=== PATIENT | female | born 1950 | race Caucasian/White ===

== ENCOUNTER → 2016-10-13 | Outpatient (CLI) | payer BC ==
[2016-10-13 13:38] VITALS: BP 129/57; PULSE 68; TEMP 98.5; BMI 35.8
--- NOTE | 2016-10-13 15:22 | P.HPBAR ---
Bariatric H&P - History & Physicial H&P Date: 10/13/16 History & Physicial: Visit/CC: Patient initial contact: Initial weight: 127.913 kg Initial weight in pounds: 282.00 Height: 5 ft 5 in Initial BMI: 46.9 Last weight: Current weight: 97.704 kg Current weight in pounds: 215.40 Current BMI: 35.8 [place] body weight (based on NIH guidelines): 56.699 kg Excess body weight loss: 42.4% The patient is a 66 year-old F who presents for Bariatric Assessment. Patient presents today for sleeve gastrectomy follow-up. She is doing quite well from her weight loss. She has some mild GERD and arthritis. Approximate 80 pounds.. She Review of Systems Constitutional: Reports as per HPI Past Medical History Past Medical History: Asthma, Hypertension, Osteoarthritis (OA) Additional Past Medical History / Comment(s): URINARY INCONTINENCE, CHRONIC BACK PAIN,"OUT GREW MY ASTHMA",HEMORRHOIDS, PAST NUCLEAR STRESS TEST,"WNL". History of Any Multi-Drug Resistant Organisms: None Reported Past Surgical History: Appendectomy, Tonsillectomy Additional Past Surgical History / Comment(s): COLONOSCOPY/POLYPECTOMT(BENIGN) 12-27-15 LAP SLEEVE GASTRECTOMY Past Anesthesia/Blood Transfusion Reactions: Motion Sickness Past Psychological History: No Psychological Hx Reported Smoking Status: Former smoker Past Alcohol Use History: Rare Additional Past Alcohol Use History / Comment(s): started smoking age 24, smokes < 1PPD Past Drug Use History: None Reported - Past Family History Sister(s) Family Medical History: Cancer Mother Family Medical History: Cancer Surgical - Exam Vital Signs Temp Pulse BP 98.5 F 68 129/57 10/13/16 13:33 10/13/16 13:33 10/13/16 13:33 - General well developed, no distress - Eyes PERRL - ENT normal pinna - Neck no masses - Respiratory normal expansion - Cardiovascular Rhythm: regular - Abdomen Abdomen: soft, non tender Bariatric Assessment & Plan Plan: That is post sleeve yesterday. Patient is doing well for weight loss standpoint. Her GERD symptoms and arthritis symptoms are minimal and will be observed observed. She'll follow-up in 2 months. Bariatric Checklist Checklist: Plan: Checklist: EGD: 1. Hiatal hernia: 2. H. Pylori: HgbA1c: Vitamin D: Smoking: Former smoker Primary care physician referral: yousuf Nicholas ([facility]) Psychiatry clearance: Cardiology clearance: Sleep study: Diet journal: VTE risk score: VTE risk level: Rehab needs at discharge:
== END | disposition home or self-care (01) ==
LOC: BARWHC3 13:01
PROVIDERS: ATTEND Surgery
DX: Z48.815 Encounter for surgical aftercare following surgery on the digestive system (principal); K21.9 Gastro-esophageal reflux disease without esophagitis; M19.90 Unspecified osteoarthritis, unspecified site; Z98.84 Bariatric surgery status; Z68.35 Body mass index [BMI] 35.0-35.9, adult; Z87.891 Personal history of nicotine dependence
CPT/HCPCS: 99211

== ENCOUNTER → 2016-11-10 | Outpatient (CLI) | payer BC ==
[2016-11-10 14:03] VITALS: BP 108/55; PULSE 71; RESP 16; TEMP 97.7; BMI 35.7
--- NOTE | 2016-11-10 16:03 | P.HPBAR ---
Bariatric H&P - History & Physicial H&P Date: 11/10/16 History & Physicial: Visit/CC: Sleeve follow-up Patient initial contact: Initial weight: 127.913 kg Initial weight in pounds: 282.00 Height: 5 ft 5 in Initial BMI: 46.9 Last weight: Current weight: 97.522 kg Current weight in pounds: 215.00 Current BMI: 35.7 [place] body weight (based on NIH guidelines): 56.699 kg Excess body weight loss: 42.6% The patient is a 66 year-old F who presents for Bariatric Assessment. Patient will stay for sleeve gastrectomy follow-up. She states that she's been cheating on her meals. She's had some mild GERD. Past Medical History Past Medical History: Asthma, Hypertension, Osteoarthritis (OA) Additional Past Medical History / Comment(s): URINARY INCONTINENCE, CHRONIC BACK PAIN,"OUT GREW MY ASTHMA",HEMORRHOIDS, PAST NUCLEAR STRESS TEST,"WNL". History of Any Multi-Drug Resistant Organisms: None Reported Past Surgical History: Appendectomy, Tonsillectomy Additional Past Surgical History / Comment(s): COLONOSCOPY/POLYPECTOMT(BENIGN) 12-27-15 LAP SLEEVE GASTRECTOMY Past Anesthesia/Blood Transfusion Reactions: Motion Sickness Past Psychological History: No Psychological Hx Reported Smoking Status: Former smoker Past Alcohol Use History: Rare Additional Past Alcohol Use History / Comment(s): started smoking age 24, smokes < 1PPD Past Drug Use History: None Reported - Past Family History Sister(s) Family Medical History: Cancer Mother Family Medical History: Cancer Surgical - Exam Vital Signs Temp Pulse Resp BP 97.7 F 71 16 108/55 11/10/16 14:01 11/10/16 14:01 11/10/16 14:01 11/10/16 14:01 - General well developed, no distress - Eyes PERRL - ENT normal pinna - Neck no masses - Respiratory normal expansion - Cardiovascular Rhythm: regular - Abdomen Abdomen: soft Bariatric Assessment & Plan Plan: Status post sleeve yesterday. Patient states she will try to improve her diet. Her GERD symptoms are minimal will be observed. She'll follow-up in one month. Bariatric Checklist Checklist: Plan: Checklist: EGD: 1. Hiatal hernia: 2. H. Pylori: HgbA1c: Vitamin D: Smoking: Former smoker Primary care physician referral: yousuf Nicholas ([facility]) Psychiatry clearance: Cardiology clearance: Sleep study: Diet journal: VTE risk score: VTE risk level: Rehab needs at discharge:
== END | disposition home or self-care (01) ==
LOC: BARWHC3 13:26
PROVIDERS: ATTEND Surgery
DX: K21.9 Gastro-esophageal reflux disease without esophagitis (principal); Z98.84 Bariatric surgery status
CPT/HCPCS: 99211

== ENCOUNTER → 2017-01-19 | Outpatient (CLI) | payer BC ==
[2017-01-19 12:57] VITALS: BP 124/58; PULSE 58; RESP 16; TEMP 97.6; BMI 33.8
[2017-01-19 14:17] LABS: INR 1.1 (<1.1); Prothrombin Time 11.3 sec (9.0-12.0)
[2017-01-19 14:18] LABS: CH 29.6; CHCM 33.8; HDW 3.12; HGB 13.4 gm/dL (11.4-16.0); MCH 30.3 pg (25.0-35.0); MCHC 34.3 g/dL (31.0-37.0); MCV 88.4 fL (80.0-100.0); Mean Platelet Volume 7.1; RBC 4.41 m/uL (3.80-5.40); RDW 13.9 % (11.5-15.5); WBC 6.7 k/uL (3.8-10.6)
[2017-01-19 14:27] LABS: ALT 36 U/L (9-52); AST 29 U/L (14-36); Alkaline Phosphatase 110 U/L (38-126); Anion Gap 11 mmol/L; Blood Urea Nitrogen 15 mg/dL (7-17); Carbon Dioxide 28 mmol/L (22-30); Chloride 104 mmol/L (98-107); Glucose 84 mg/dL (74-99); Non-African American GFR(MDRD) >60 (>60 ml/min/1.73 sqM); Potassium 4.5 mmol/L (3.5-5.1); Sodium 143 mmol/L (137-145); Total Bilirubin 0.7 mg/dL (0.2-1.3); Total Protein 7.2 g/dL (6.3-8.2)
[2017-01-19 15:14] LABS: Vitamin B12 641 pg/mL (239-931)
--- NOTE | 2017-01-19 16:39 | P.HPBAR ---
Bariatric H&P - History & Physicial H&P Date: 01/19/17 History & Physicial: Visit/CC: sleeve follow-up Patient initial contact: Initial weight: 127.913 kg Initial weight in pounds: 282.00 Height: 5 ft 5 in Initial BMI: 46.9 Last weight: 215 Current weight: 92.278 kg Current weight in pounds: 203.00 Current BMI: 33.8 [place] body weight (based on NIH guidelines): 56.699 kg Excess body weight loss: 50.3% The patient is a 66 year-old F who presents for Bariatric Assessment. Patient presents today for sleeve follow-up. She is doing fairly well. She's had minimal complaints of GERD. She's had great weight loss. Her GERD symptoms are minimal. Past Medical History Past Medical History: Asthma, Hypertension, Osteoarthritis (OA) Additional Past Medical History / Comment(s): URINARY INCONTINENCE, CHRONIC BACK PAIN,"OUT GREW MY ASTHMA",HEMORRHOIDS, PAST NUCLEAR STRESS TEST,"WNL". History of Any Multi-Drug Resistant Organisms: None Reported Past Surgical History: Appendectomy, Bariatric Surgery, Tonsillectomy Additional Past Surgical History / Comment(s): COLONOSCOPY/POLYPECTOMT(BENIGN) 12-27-15 LAP SLEEVE GASTRECTOMY Past Anesthesia/Blood Transfusion Reactions: Motion Sickness Past Psychological History: No Psychological Hx Reported Smoking Status: Former smoker - Past Family History Sister(s) Family Medical History: Cancer Mother Family Medical History: Cancer Surgical - Exam Vital Signs Temp Pulse Resp BP 97.6 F 58 L 16 124/58 01/19/17 12:54 01/19/17 12:54 01/19/17 12:54 01/19/17 12:54 - General well developed - Abdomen Abdomen: soft, non tender Results - Labs 01/19/17 13:45 01/19/17 13:45 Abnormal Lab Results - Last 24 Hours (Table) 01/19/17 Range/Units 13:45 Creatinine 0.50 L (0.52-1.04) mg/dL TSH 0.015 L (0.465-4.680) mIU/L Diabetes panel 01/19/17 Range/Units 13:45 Sodium 143 (137-145) mmol/L Potassium 4.5 (3.5-5.1) mmol/L Chloride 104 (98-107) mmol/L Carbon Dioxide 28 (22-30) mmol/L BUN 15 (7-17) mg/dL Creatinine 0.50 L (0.52-1.04) mg/dL Glucose 84 (74-99) mg/dL Calcium 10.0 (8.4-10.2) mg/dL AST 29 (14-36) U/L ALT 36 (9-52) U/L Alkaline Phosphatase 110 (38-126) U/L Total Protein 7.2 (6.3-8.2) g/dL Albumin 4.3 (3.5-5.0) g/dL Thyroid panel 01/19/17 Range/Units 13:45 TSH 0.015 L (0.465-4.680) mIU/L Calcium panel 01/19/17 Range/Units 13:45 Calcium 10.0 (8.4-10.2) mg/dL Albumin 4.3 (3.5-5.0) g/dL Pituitary panel 01/19/17 Range/Units 13:45 Sodium 143 (137-145) mmol/L Potassium 4.5 (3.5-5.1) mmol/L Chloride 104 (98-107) mmol/L Carbon Dioxide 28 (22-30) mmol/L BUN 15 (7-17) mg/dL Creatinine 0.50 L (0.52-1.04) mg/dL Glucose 84 (74-99) mg/dL Calcium 10.0 (8.4-10.2) mg/dL TSH 0.015 L (0.465-4.680) mIU/L Adrenal panel 01/19/17 Range/Units 13:45 Sodium 143 (137-145) mmol/L Potassium 4.5 (3.5-5.1) mmol/L Chloride 104 (98-107) mmol/L Carbon Dioxide 28 (22-30) mmol/L BUN 15 (7-17) mg/dL Creatinine 0.50 L (0.52-1.04) mg/dL Glucose 84 (74-99) mg/dL Calcium 10.0 (8.4-10.2) mg/dL Total Bilirubin 0.7 (0.2-1.3) mg/dL AST 29 (14-36) U/L ALT 36 (9-52) U/L Alkaline Phosphatase 110 (38-126) U/L Total Protein 7.2 (6.3-8.2) g/dL Albumin 4.3 (3.5-5.0) g/dL Bariatric Assessment & Plan Plan: Status post sleeve yesterday. Patient did quite well. She is in minimal GERD symptoms. She'll follow-up in one month. Bariatric Checklist Checklist: Plan: Checklist: EGD: 1. Hiatal hernia: 2. H. Pylori: HgbA1c: Vitamin D: Smoking: Former smoker Primary care physician referral: yousuf Nicholas ([facility]) Psychiatry clearance: Cardiology clearance: Sleep study: Diet journal: VTE risk score: VTE risk level: Rehab needs at discharge:
== END | disposition home or self-care (01) ==
LOC: BARWHC3 12:31
PROVIDERS: ATTEND Surgery
DX: Z48.815 Encounter for surgical aftercare following surgery on the digestive system (principal); Z71.3 Dietary counseling and surveillance; E66.01 Morbid (severe) obesity due to excess calories; Z68.33 Body mass index [BMI] 33.0-33.9, adult; Z98.84 Bariatric surgery status; E44.0 Moderate protein-calorie malnutrition; E45 Retarded development following protein-calorie malnutrition; K21.9 Gastro-esophageal reflux disease without esophagitis; Z87.891 Personal history of nicotine dependence
CPT/HCPCS: 80053; 82306; 82607; 84425; 84443; 85027; 85610; 97803; 99211

== ENCOUNTER → 2018-02-01 | Outpatient (CLI) | payer MEDICARE, BC ==
[2018-02-01 15:10] VITALS: BP 112/67; PULSE 68; RESP 18; TEMP 97.7; BMI 32.2
[2018-02-01 16:05] LABS: HCT 37.5 % (34.0-46.0); HGB 12.4 gm/dL (11.4-16.0); MCH 28.4 pg (25.0-35.0); MCV 86.1 fL (80.0-100.0); Platelet Count 235 k/uL (150-450); RBC 4.36 m/uL (3.80-5.40); WBC 7.1 k/uL (3.8-10.6)
[2018-02-01 16:13] LABS: ALT 31 U/L (9-52); AST 23 U/L (14-36); Albumin 3.9 g/dL (3.5-5.0); Alkaline Phosphatase 117 U/L (38-126); Anion Gap 8 mmol/L; Blood Urea Nitrogen 19 mg/dL (7-17); Calcium 9.5 mg/dL (8.4-10.2); Carbon Dioxide 26 mmol/L (22-30); Chloride 105 mmol/L (98-107); Glucose 87 mg/dL (74-99); Potassium 4.6 mmol/L (3.5-5.1); Sodium 139 mmol/L (137-145); Total Bilirubin 0.5 mg/dL (0.2-1.3); Total Protein 6.9 g/dL (6.3-8.2)
--- NOTE | 2018-02-01 16:41 | P.HPBAR ---
Bariatric H&P - History & Physicial H&P Date: 02/01/18 History & Physicial: Visit/CC: 1 year f/u Patient initial contact: Initial weight: 127.913 kg Initial weight in pounds: 282.00 Height: 5 ft 5 in Initial BMI: 46.9 Last weight: Current weight: 87.861 kg Current weight in pounds: 193.70 Current BMI: 32.2 [place] body weight (based on NIH guidelines): 56.699 kg Excess body weight loss: 56.2% The patient is a 67 year-old F who presents for Bariatric Assessment. Patient presents today for sleeve gastrectomy fall. She's had some minimal GERD. She denies any significant dysphagia. She's lost another 10 pounds since her last visit. Past Medical History Past Medical History: Asthma, Hypertension, Osteoarthritis (OA) Additional Past Medical History / Comment(s): URINARY INCONTINENCE, CHRONIC BACK PAIN,"OUT GREW MY ASTHMA",HEMORRHOIDS, PAST NUCLEAR STRESS TEST,"WNL". History of Any Multi-Drug Resistant Organisms: None Reported Past Surgical History: Appendectomy, Bariatric Surgery, Tonsillectomy Additional Past Surgical History / Comment(s): COLONOSCOPY/POLYPECTOMT(BENIGN) 12-27-15 LAP SLEEVE GASTRECTOMY Past Anesthesia/Blood Transfusion Reactions: Motion Sickness Past Psychological History: No Psychological Hx Reported Smoking Status: Former smoker Past Alcohol Use History: Rare Additional Past Alcohol Use History / Comment(s): started smoking age 24, smokes < 1PPD Past Drug Use History: None Reported - Past Family History Sister(s) Family Medical History: Cancer Mother Family Medical History: Cancer Surgical - Exam Vital Signs Temp Pulse Resp BP 97.7 F 68 18 112/67 02/01/18 15:07 02/01/18 15:07 02/01/18 15:07 02/01/18 15:07 - General well developed, no distress - Eyes PERRL - Abdomen Abdomen: soft, non tender Results - Labs 02/01/18 15:40 02/01/18 15:40 Abnormal Lab Results - Last 24 Hours (Table) 02/01/18 Range/Units 15:40 BUN 19 H (7-17) mg/dL Creatinine 0.40 L (0.52-1.04) mg/dL Diabetes panel 02/01/18 Range/Units 15:40 Sodium 139 (137-145) mmol/L Potassium 4.6 (3.5-5.1) mmol/L Chloride 105 (98-107) mmol/L Carbon Dioxide 26 (22-30) mmol/L BUN 19 H (7-17) mg/dL Creatinine 0.40 L (0.52-1.04) mg/dL Glucose 87 (74-99) mg/dL Calcium 9.5 (8.4-10.2) mg/dL AST 23 (14-36) U/L ALT 31 (9-52) U/L Alkaline Phosphatase 117 (38-126) U/L Total Protein 6.9 (6.3-8.2) g/dL Albumin 3.9 (3.5-5.0) g/dL Calcium panel 02/01/18 Range/Units 15:40 Calcium 9.5 (8.4-10.2) mg/dL Albumin 3.9 (3.5-5.0) g/dL Pituitary panel 02/01/18 Range/Units 15:40 Sodium 139 (137-145) mmol/L Potassium 4.6 (3.5-5.1) mmol/L Chloride 105 (98-107) mmol/L Carbon Dioxide 26 (22-30) mmol/L BUN 19 H (7-17) mg/dL Creatinine 0.40 L (0.52-1.04) mg/dL Glucose 87 (74-99) mg/dL Calcium 9.5 (8.4-10.2) mg/dL Adrenal panel 02/01/18 Range/Units 15:40 Sodium 139 (137-145) mmol/L Potassium 4.6 (3.5-5.1) mmol/L Chloride 105 (98-107) mmol/L Carbon Dioxide 26 (22-30) mmol/L BUN 19 H (7-17) mg/dL Creatinine 0.40 L (0.52-1.04) mg/dL Glucose 87 (74-99) mg/dL Calcium 9.5 (8.4-10.2) mg/dL Total Bilirubin 0.5 (0.2-1.3) mg/dL AST 23 (14-36) U/L ALT 31 (9-52) U/L Alkaline Phosphatase 117 (38-126) U/L Total Protein 6.9 (6.3-8.2) g/dL Albumin 3.9 (3.5-5.0) g/dL Bariatric Assessment & Plan Plan: Patient's history well postoperatively from sleeve gastrectomy. Her weight loss is excellent. She has some minimal GERD. This will be observed. Bariatric Checklist Checklist: Plan: Checklist: EGD: 1. Hiatal hernia: 2. H. Pylori: HgbA1c: Vitamin D: Smoking: Former smoker Primary care physician referral: yousuf Nicholas ([facility]) Psychiatry clearance: Cardiology clearance: Sleep study: Diet journal: VTE risk score: VTE risk level: Rehab needs at discharge:
[2018-02-02 02:41] LABS: Vitamin D 25 Hydroxy 69.6 ng/mL (30.0-100.0)
== END | disposition home or self-care (01) ==
LOC: BARWHC3 14:24
PROVIDERS: ATTEND Surgery
DX: Z09 Encounter for follow-up examination after completed treatment for conditions other than malignant neoplasm (principal); K21.9 Gastro-esophageal reflux disease without esophagitis; G89.29 Other chronic pain; M54.9 Dorsalgia, unspecified; Z98.84 Bariatric surgery status; Z90.89 Acquired absence of other organs; Z98.890 Other specified postprocedural states; Z87.891 Personal history of nicotine dependence
CPT/HCPCS: 84134; 84425; 80053; 82607; 82746; 84443; 85027; 82306; 36415; G0463; 99211